=== PATIENT | female | born 1990 | race African-American/Black ===

== ENCOUNTER 2017-06-17 18:28 | Emergency (ER) | payer MEDICARE, MEDICAID ==
[~2017-06-17] VITALS: Ht 152.4 cm; Wt 105.0 kg
[2017-06-17] MEDS ORDERED: METOCLOPRAMIDE HCL 10MG/2ML VIAL IV STA (23:38)
[2017-06-17] MEDS ORDERED: FAMOTIDINE 20MG/2ML VIAL IV STA (23:38)
[2017-06-17] MEDS ORDERED: SODIUM CHLORIDE 0.9% 1,000 ML IV ONE (23:38)
[2017-06-17] MEDS ORDERED: KETOROLAC 30MG/ML VIAL IV STA (23:38)
[2017-06-17 23:58] LABS: BASOPHILS % 0.6 % (0.0-2.0); EOSINOPHILS % 3.7 % (0.0-5.0); HEMATOCRIT. 34.2 % (36.0-48.0); HEMOGLOBIN. 10.9 g/dL (12.0-16.0); MEAN CORPUSCULAR HEMOGLOBIN 22.6 pg (28.0-32.0); MEAN CORPUSCULAR VOLUME 71.3 fL (81.0-99.0); MEAN PLATELET VOLUME 8.8 fl (7.4-10.4); NEUTROPHILS % 33.7 % (40.0-76.0); PLATELET 186 x1000/uL (130-400); RED CELL DISTRIBUTION WIDTH 14.2 % (11.6-14.6)
[2017-06-18 00:04] LABS: CHLORIDE 106 mEq/L (98-107)
[2017-06-18 00:12] LABS: CARBON DIOXIDE 26 mEq/L (21-32); ETHANOL BLOOD < 10 mg/dL
[2017-06-18 00:15] LABS: PROTHROMBIN TIME 10.9 sec (9.4-11.6)
[2017-06-18 03:01] LABS: CLARITY URINE CLOUDY (CLEAR); COLOR URINE YELLOW (YELLOW); GLUCOSE URINE NEGATIVE (NEGATIVE); KETONES URINE NEGATIVE (NEGATIVE); LEUKOCYTE ESTERASE URINE NEGATIVE (NEGATIVE); NITRITE URINE NEGATIVE (NEGATIVE); OCCULT BLOOD URINE NEGATIVE (NEGATIVE); PROTEIN URINE NEGATIVE (NEGATIVE)
[2017-06-18 03:10] LABS: *AMPHETAMINES SCREEN URINE NEGATIVE (NEGATIVE); *BARBITURATES SCREEN URINE NEGATIVE (NEGATIVE); *BENZODIAZEPINES SCREEN URINE NEGATIVE (NEGATIVE); *COCAINE SCREEN URINE NEGATIVE (NEGATIVE); METHADONE URINE SCREEN NEGATIVE (NEGATIVE); OPIATES URINE SCREEN NEGATIVE (NEGATIVE); PHENCYCLIDINE URINE SCREEN NEGATIVE (NEGATIVE)
[2017-06-18 03:28] LABS: CANNABINOID URINE SCREEN PRESUMTIVE POSITIVE (NEGATIVE)
[2017-06-18 04:01] VITALS: BP 121/78
== END 2017-06-18 04:01 | disposition home or self-care (01) ==
LOC: ER 23:58
DX: K80.50 Calculus of bile duct without cholangitis or cholecystitis without obstruction (principal); F17.200 Nicotine dependence, unspecified, uncomplicated; F12.10 Cannabis abuse, uncomplicated; J45.909 Unspecified asthma, uncomplicated; Z88.0 Allergy status to penicillin; Z88.2 Allergy status to sulfonamides
CPT/HCPCS: 36415; 76705; 80053; 80305; 81001; 81025; 83690; 85025; 85610; 93005; 96361; 96374; 96375; 99285; G0482; J1885; J2765; J3490; J7030

== ENCOUNTER 2018-01-29 12:23 | Emergency (ER) | payer MEDICARE, MEDICAID ==
[~2018-01-29] VITALS: Ht 152.4 cm; Wt 116.0 kg
[2018-01-29 13:08] LABS: COLOR URINE YELLOW (YELLOW); KETONES URINE NEGATIVE (NEGATIVE); LEUKOCYTE ESTERASE URINE 2+ (NEGATIVE); NITRITE URINE NEGATIVE (NEGATIVE); OCCULT BLOOD URINE NEGATIVE (NEGATIVE); PROTEIN URINE NEGATIVE (NEGATIVE); SPECIFIC GRAVITY URINE 1.028 (1.005-1.030); UROBILINOGEN URINE 0.2 E.U./dL (0.2-1.0)
[2018-01-29 13:09] LABS: CLARITY URINE CLEAR (CLEAR)
[2018-01-29 14:58] VITALS: BP 132/64
== END 2018-01-29 17:04 | disposition left against medical advice (07) ==
LOC: ER 13:13
DX: R10.31 Right lower quadrant pain (principal); R11.10 Vomiting, unspecified; J45.909 Unspecified asthma, uncomplicated; F12.10 Cannabis abuse, uncomplicated; Z88.0 Allergy status to penicillin; Z88.2 Allergy status to sulfonamides
CPT/HCPCS: 81003; 81025; 99283

== ENCOUNTER 2018-08-30 23:27 | Emergency (ER) | payer MEDICARE, MEDICAID ==
[~2018-08-30] VITALS: Ht 157.5 cm; Wt 82.0 kg
[2018-08-31] MEDS ORDERED: IPRATROPIUM BROMIDE (0.02%) 0.5MG/2.5ML NEB HHN STA (00:06)
[2018-08-31] MEDS ORDERED: PREDNISONE 20MG TABLET PO STA (00:06)
[2018-08-31] MEDS ORDERED: SODIUM CHLORIDE 0.9% 1,000 ML IV ONE (00:06)
[2018-08-31] MEDS ORDERED: ALBUTEROL (0.083%) 2.5MG/3ML NEB HHN SCH (00:30)
[2018-08-31 00:41] LABS: BASOPHILS % 0.8 % (0.0-2.0); EOSINOPHILS % 5.7 % (0.0-5.0); HEMATOCRIT. 35.4 % (36.0-48.0); HEMOGLOBIN. 11.3 g/dL (12.0-16.0); LYMPHOCYTES % 38.9 % (20.0-50.0); MEAN CORPUSCULAR HEMOGLOBIN 22.6 pg (28.0-32.0); MEAN CORPUSCULAR VOLUME 71.1 fL (81.0-99.0); MEAN PLATELET VOLUME 8.7 fl (7.4-10.4); MONOCYTES % 11.1 % (2.0-8.0); NEUTROPHILS % 43.5 % (40.0-76.0); PLATELET 202 x1000/uL (130-400); RED BLOOD CELL COUNT 4.98 mill/uL (4.2-5.4); RED CELL DISTRIBUTION WIDTH 14.7 % (11.6-14.6)
[2018-08-31 00:47] LABS: CHLORIDE 107 mEq/L (98-107)
[2018-08-31 02:22] VITALS: BP 116/68
== END 2018-08-31 02:24 | disposition home or self-care (01) ==
LOC: ER 23:27
DX: J18.9 Pneumonia, unspecified organism (principal); J45.901 Unspecified asthma with (acute) exacerbation; Z88.0 Allergy status to penicillin; Z88.2 Allergy status to sulfonamides
CPT/HCPCS: 36415; 71045; 80053; 81025; 85025; 99285; J7030; J7512; J7611

== ENCOUNTER 2019-06-10 21:44 | Emergency (ER) | payer MEDICARE, MEDICAID ==
[~2019-06-10] VITALS: Ht 152.4 cm; Wt 124.0 kg
[2019-06-10] MEDS ORDERED: SODIUM CHLORIDE 0.9% 1,000 ML IV ONE (22:49)
[2019-06-10] MEDS ORDERED: METOCLOPRAMIDE HCL 10MG/2ML VIAL IV ONE (23:00)
[2019-06-10 23:36] LABS: BASOPHILS % 0.7 % (0.0-2.0); EOSINOPHILS % 2.7 % (0.0-5.0); HEMATOCRIT. 38.4 % (36.0-48.0); HEMOGLOBIN. 12.4 g/dL (12.0-16.0); MEAN PLATELET VOLUME 8.6 fl (7.4-10.4); MONOCYTES % 11.1 % (2.0-8.0); NEUTROPHILS % 49.5 % (40.0-76.0); PLATELET 232 x1000/uL (130-400); RED BLOOD CELL COUNT 5.41 mill/uL (4.2-5.4); RED CELL DISTRIBUTION WIDTH 14.1 % (11.6-14.6)
[2019-06-10 23:40] VITALS: BP 132/74
[2019-06-10 23:44] LABS: CHLORIDE 106 mEq/L (98-107)
[2019-06-11 00:39] LABS: CLARITY URINE CLOUDY (CLEAR); COLOR URINE YELLOW (YELLOW); KETONES URINE TRACE (NEGATIVE); LEUKOCYTE ESTERASE URINE NEGATIVE (NEGATIVE); NITRITE URINE NEGATIVE (NEGATIVE); OCCULT BLOOD URINE NEGATIVE (NEGATIVE); PH URINE 5.5 (4.5-8.0); PROTEIN URINE NEGATIVE (NEGATIVE); SPECIFIC GRAVITY URINE 1.033 (1.005-1.030)
== END 2019-06-11 01:13 | disposition home or self-care (01) ==
LOC: ER 21:44
DX: R51 Headache (principal); R42 Dizziness and giddiness; R11.2 Nausea with vomiting, unspecified; D64.9 Anemia, unspecified; J45.909 Unspecified asthma, uncomplicated; Z88.0 Allergy status to penicillin; Z88.2 Allergy status to sulfonamides
CPT/HCPCS: 36415; 80053; 81003; 85025; 96361; 96374; 99283; J2765; J7030

== ENCOUNTER 2020-10-09 15:47 | Emergency (ER) | payer MEDICARE, MEDICAID ==
[~2020-10-09] VITALS: Ht 152.4 cm; Wt 137.0 kg
[2020-10-09] MEDS ORDERED: ONDANSETRON HCL 4MG/2ML INJ IV STA (21:36)
[2020-10-09] MEDS ORDERED: SODIUM CHLORIDE 0.9% 1,000 ML IV ONE (21:45)
[2020-10-09 22:03] LABS: BASOPHILS % 0.6 % (0.0-2.0); EOSINOPHILS % 1.3 % (0.0-5.0); HEMATOCRIT. 39.2 % (36.0-48.0); HEMOGLOBIN. 12.5 g/dL (12.0-16.0); LYMPHOCYTES % 37.4 % (20.0-50.0); MEAN CORPUSCULAR HEMOGLOBIN 22.6 pg (28.0-32.0); MEAN CORPUSCULAR VOLUME 71.1 fL (81.0-99.0); MEAN PLATELET VOLUME 8.6 fl (7.4-10.4); MONOCYTES % 11.4 % (2.0-8.0); NEUTROPHILS % 49.3 % (40.0-76.0); PLATELET 233 x1000/uL (130-400); RED BLOOD CELL COUNT 5.51 mill/uL (4.2-5.4)
[2020-10-09 22:11] LABS: CHLORIDE 104 mEq/L (98-107)
[2020-10-09 22:36] LABS: B-HCG QUANTITATIVE 24551 mIU/mL (<3)
[2020-10-09 23:00] LABS: CLARITY URINE CLOUDY (CLEAR); COLOR URINE YELLOW (YELLOW); KETONES URINE 1+ (NEGATIVE); LEUKOCYTE ESTERASE URINE 1+ (NEGATIVE); NITRITE URINE NEGATIVE (NEGATIVE); OCCULT BLOOD URINE NEGATIVE (NEGATIVE); PH URINE 5.5 (4.5-8.0); PROTEIN URINE NEGATIVE (NEGATIVE); SPECIFIC GRAVITY URINE 1.025 (1.005-1.030)
[2020-10-09 23:24] LABS: *AMPHETAMINES SCREEN URINE NEGATIVE (NEGATIVE); *BARBITURATES SCREEN URINE NEGATIVE (NEGATIVE)
[2020-10-09 23:25] LABS: *BENZODIAZEPINES SCREEN URINE NEGATIVE (NEGATIVE); *COCAINE SCREEN URINE NEGATIVE (NEGATIVE); CANNABINOID URINE SCREEN NEGATIVE (NEGATIVE); METHADONE URINE SCREEN NEGATIVE (NEGATIVE); OPIATES URINE SCREEN NEGATIVE (NEGATIVE); PHENCYCLIDINE URINE SCREEN NEGATIVE (NEGATIVE)
[2020-10-10 00:33] VITALS: BP 127/79
== END 2020-10-10 00:35 | disposition home or self-care (01) ==
LOC: ER 15:47
DX: O99.611 Diseases of the digestive system complicating pregnancy, first trimester (principal); O24.911 Unspecified diabetes mellitus in pregnancy, first trimester; O23.41 Unspecified infection of urinary tract in pregnancy, first trimester; O26.891 Other specified pregnancy related conditions, first trimester; J45.909 Unspecified asthma, uncomplicated; Z88.2 Allergy status to sulfonamides; Z88.0 Allergy status to penicillin; Z3A.13 13 weeks gestation of pregnancy
CPT/HCPCS: 36415; 76705; 76801; 80053; 80305; 81003; 81025; 83690; 84702; 85025; 99284; J7030

== ENCOUNTER 2021-11-30 21:12 | Emergency (ER) | payer MEDICARE, MEDICAID ==
[~2021-11-30] VITALS: Ht 154.9 cm; Wt 86.0 kg
[2021-11-30 21:15] VITALS: BP 136/88
== END 2021-11-30 23:20 | disposition home or self-care (01) ==
LOC: ER 21:12
DX: R45.851 Suicidal ideations (principal); J45.909 Unspecified asthma, uncomplicated; Z88.0 Allergy status to penicillin
CPT/HCPCS: 99283

== ENCOUNTER 2022-12-13 22:43 | Emergency (ER) | payer MEDICARE, MEDICAID ==
[~2022-12-13] VITALS: Ht 152.4 cm; Wt 130.0 kg
[2022-12-13 23:11] VITALS: BP 153/88
[2022-12-14] MEDS ORDERED: IBUP-2028 MT (05:29)
== END 2022-12-14 06:10 | disposition home or self-care (01) ==
LOC: ER 22:43
DX: T16.1XXA Foreign body in right ear, initial encounter (principal); J45.909 Unspecified asthma, uncomplicated; Z88.2 Allergy status to sulfonamides; Z88.0 Allergy status to penicillin; X58.XXXA Exposure to other specified factors, initial encounter; Y93.E8 Activity, other personal hygiene; Y92.012 Bathroom of single-family (private) house as the place of occurrence of the external cause
CPT/HCPCS: 69200; 99284

== ENCOUNTER 2023-07-05 15:46 | Emergency (ER) | payer MEDICARE, MEDICAID ==
[~2023-07-05] VITALS: Ht 154.9 cm; Wt 111.0 kg
[~2023-07-05 15:46] MED LIST: IBUP-2028 MT
[2023-07-05 15:50] VITALS: BP 110/90; PULSE 98; RESP 12; TEMP 98.2; O2SAT 98
[2023-07-05 16:48] LABS: BASOPHILS % 0.6 % (0.0-2.0); DIFFERENTIAL COMMENT 0; EOSINOPHILS % 3.6 % (0.0-5.0); HEMATOCRIT. 38.9 % (36.0-48.0); HEMOGLOBIN. 12.2 g/dL (12.0-16.0); LYMPHOCYTES % 49.6 % (20.0-50.0); MEAN CORPUSCULAR HEMOGLOBIN 22.4 pg (28.0-32.0); MEAN CORPUSCULAR HGB CONC 31.3 g/dL (31.0-37.0); MEAN CORPUSCULAR VOLUME 71.7 fL (81.0-99.0); MEAN PLATELET VOLUME 8.6 fl (7.4-10.4); MONOCYTES % 11.6 % (2.0-8.0); NEUTROPHILS % 34.6 % (40.0-76.0); PLATELET 253 x1000/uL (130-400); RED BLOOD CELL COUNT 5.43 mill/uL (4.2-5.4); RED CELL DISTRIBUTION WIDTH 14.8 % (11.6-14.6); WHITE BLOOD COUNT 6.5 x1000/uL (4.5-11.0)
[2023-07-05 16:51] LABS: CHLORIDE 110 mEq/L (98-107); INDEX HEMOLYSI 1 (1-3); INDEX ICTERIC 1 (1-4); INDEX LIPEMIC 1 (1-3); POTASSIUM 3.7 mEq/L (3.5-5.1); SODIUM 137 mEq/L (136-145)
[2023-07-05 16:56] LABS: HCG SCREEN NEGATIVE
[2023-07-05 17:01] LABS: ALANINE AMINOTRANSFERASE 41 IU/L (13-61); ALBUMIN 3.7 g/dL (3.4-5.0); ASPARTATE AMINOTRANSFERASE 22 IU/L (15-37); BILIRUBIN TOTAL 0.2 mg/dL (0.1-1.0); CALCIUM 8.8 mg/dL (8.5-10.1); CARBON DIOXIDE 27 mEq/L (21-32); CREATININE 0.7 mg/dL (0.6-1.3); GLUCOSE 90 mg/dL (70-105); NT PRO B-TYPE NATRIURETIC PEP 10 pg/mL (5-125); PROTEIN TOTAL 8.6 g/dL (6.0-8.3); TROPONIN I HIGH SENSITIVITY 10 ng/L (<54); UREA NITROGEN BLOOD 11 mg/dL (7-21)
[2023-07-05] MEDS ORDERED: IBUP-2028 MT (18:05)
== END 2023-07-05 18:33 | disposition home or self-care (01) ==
LOC: ER 15:46
DX: R20.0 Anesthesia of skin (principal); R51.9 Headache, unspecified; J45.909 Unspecified asthma, uncomplicated; Z88.0 Allergy status to penicillin; Z88.2 Allergy status to sulfonamides
CPT/HCPCS: 36415; 71045; 80053; 81025; 83880; 84484; 84703; 85025; 93005; 99285